=== PATIENT | female | born 1965 | race Two or more races ===

== ENCOUNTER 2022-01-31 10:58 | Outpatient (CLI) | payer MEDICARE, OTHER | END 2022-01-31 23:59 | disposition home or self-care (01) | LOC: MSC 10:58 | PROVIDERS: ATTEND Anesthesiology | DX: M51.26 Other intervertebral disc displacement, lumbar region (principal); M48.061 Spinal stenosis, lumbar region without neurogenic claudication; M54.16 Radiculopathy, lumbar region; M40.299 Other kyphosis, site unspecified; M17.9 Osteoarthritis of knee, unspecified; R25.2 Cramp and spasm; M79.606 Pain in leg, unspecified ==